=== PATIENT | female | born 1995 | race Caucasian/White ===

== ENCOUNTER 2023-06-29 14:12 | Outpatient (CLI) | payer SELFPAY ==
[2023-06-29 14:50] LABS: Hemoglobin A1C 4.8 % (<5.7)
[2023-06-29 14:54] LABS: Alanine Aminotransferase 14 U/L (6-35); Albumin Level 4.2 g/dL (3.5-5.1); Alkaline Phosphatase 48 U/L (38-126); Anion Gap 7 mmol/L (8-16); Aspartate Amino Transferase 21 U/L (14-36); Bilirubin,Total 0.7 mg/dL (0.2-1.3); Blood Urea Nitrogen 11 mg/dL (7-17); Calcium 9.1 mg/dL (8.4-10.2); Carbon Dioxide 26 mmol/L (22-30); Chloride 105 mmol/L (98-107); Cholesterol 187 mg/dL (0-200); Estimated Glomerular Filt Rate > 60; Glucose 85 mg/dL (65-110); HDL Direct 47 mg/dL; Sodium 138 mmol/L (137-145); Triglycerides 126 mg/dL (<150)
[2023-06-29 15:05] LABS: LDL Cholesterol Direct 96 mg/dL
== END 2023-06-29 14:13 | disposition home or self-care (01) ==
DX: E66.3 Overweight (principal)
CPT/HCPCS: 36415; 80053; 80061; 83036; 84443